=== PATIENT | female | born 1980 | race Caucasian/White ===

== ENCOUNTER 2016-09-07 13:42 | Emergency (ER) | payer OTHER ==
[2016-09-07 14:41] VITALS: BP 108/65
--- NOTE | 2016-09-07 15:08 | UC ---
Respiratory Complaint HPI - HPI Summary HPI Summary: 36 YO FEMALE WITH A ONE WEEK HX OF PROGRESSIVELY WORSENING COUGH/RUNNY NOSE/ POST NASAL DRIP/SORE THROAT AND FACIAL PRESSURE NO FEVER FATIGUE AND LOW ENERGY NO SOB HAS CP WHEN COUGHING COUGH WORSE AT NIGHT - History of Current Complaint Chief Complaint: UCRespiratory Stated Complaint: PREG/UPPER RESP COMPLAINT Time Seen by Provider: 09/07/16 14:52 Hx Obtained From: Patient Hx Last Menstrual Period: 04/26/16 Onset/Duration: Gradual Onset, Lasting Weeks - 1 Severity Initially: Mild Severity Currently: Moderate Pain Intensity: 2 Pain Scale Used: 0-10 Numeric Character: Cough: Nonproductive Aggravating Factors: Deep Breaths, Recumbent Position Alleviating Factors: Nothing Associated Signs And Symptoms: Positive: URI, Nasal Congestion, Sinus Discomfort - Allergies/Home Medications Allergies/Adverse Reactions: Allergies Allergy/AdvReac Type Severity Reaction Status Date / Time No Known Allergies Allergy Verified 10/03/14 12:32 PMH/Surg Hx/FS Hx/Imm Hx Previously Healthy: Yes Respiratory History: Asthma - EIA, Bronchitis, Pneumonia - X1 - Surgical History Surgical History: Yes Surgery Procedure, Year, and Place: APPENDECTOMY - Family History Known Family History: Positive: Hypertension - Social History Alcohol Use: None Substance Use Type: None Smoking Status (MU): Never Smoked Tobacco - Immunization History Most Recent Influenza Vaccination: received this flu season per pt Most Recent Tetanus Shot: 10/09/2013 Most Recent Pneumonia Vaccination: none Review of Systems Constitutional: Fatigue Skin: Negative Eyes: Negative ENT: Sore Throat, Ear Ache, Nasal Discharge, Sinus Congestion, Sinus Pain/ Tenderness Respiratory: Cough Cardiovascular: Negative Gastrointestinal: Negative Genitourinary: Negative Motor: Negative Neurovascular: Negative Musculoskeletal: Negative Neurological: Negative Psychological: Negative All Other Systems Reviewed And Are Negative: Yes Physical Exam Triage Information Reviewed: Yes Appearance: Well-Appearing, No Pain Distress, Well-Nourished Vital Signs: Initial Vital Signs Temp 98.7 F 09/07/16 14:37 Pulse 117 09/07/16 14:37 Resp 20 09/07/16 14:37 BP 108/65 09/07/16 14:37 Pulse Ox 100 09/07/16 14:37 Vital Signs Reviewed: Yes Eyes: Positive: Conjunctiva Clear ENT: Positive: Hearing grossly normal, Pharyngeal erythema, Nasal congestion, TM bulging, Other: - SLIGHT RIGHT MAX SINUS TENDERNESS. Negative: Nasal drainage, TMs normal, TM dull, TM red, Tonsillar swelling, Tonsillar exudate, Trismus, Muffled/hoarse voice Neck: Positive: Supple, Nontender, No Lymphadenopathy Respiratory: Positive: No respiratory distress, No accessory muscle use, Rhonchi Cardiovascular: Positive: RRR Abdominal Exam: Other - GRAVID UTERUS Musculoskeletal: Positive: ROM Intact, No Edema Neurological: Positive: Alert Psychological Exam: Normal Skin Exam: Normal UC Diagnostic Evaluation - Laboratory O2 Sat by Pulse Oximetry: 100 Respiratory Course/Dx - Differential Dx/Diagnosis Provider Diagnoses: ACUTE BRONCHITIS Discharge - Discharge Plan Condition: Stable Disposition: HOME Prescriptions: Amoxicillin (*) [Amoxicillin 875 MG (*)] 875 mg PO BID #14 tab Patient Education Materials: Acute Bronchitis (ED) Referrals: [facility] [Outside] - If Needed (CALL FOR HELP FINDING A PRIMARY CARE PROVIDER) Additional Instructions: RECHECK FOR NEW OR WORSENING SYMPTOMS RECHECK IN ABOUT 4 DAYS IF NOT IMPROVED
== END 2016-09-07 15:10 | disposition home or self-care (01) ==
LOC: UCEAST 13:42
DX: O26.899 Other specified pregnancy related conditions, unspecified trimester (principal); Z3A.00 Weeks of gestation of pregnancy not specified; J20.9 Acute bronchitis, unspecified; J45.909 Unspecified asthma, uncomplicated
CPT/HCPCS: 99211; G0463

== ENCOUNTER 2017-01-24 10:09 | Emergency (ER) | payer OTHER ==
[2017-01-24 10:27] VITALS: BP 93/55
--- NOTE | 2017-01-24 11:29 | UC ---
General HPI - HPI Summary HPI Summary: 36 y/o female 39 weeks presents to the urgent cage c/o fever, body aches, cough, PISANO, sore throat since 01/22/2017. Pt states she had a severe PISANO on and 01/24/2017 which resolved with tylenol. Pt has been stress out this past weekend celebrating Thanks giving and her daughter's birthday. She reports cough is dry but it has lingered for months. She was Tx for bronchitis 2X one in 07/2016 and the other 11/2016 Rx ABX, but cough never resolved. She also has burning and frequency on urination. She went to the OBGYN this morning. Her Dr did a UA and was +2 leuks, but her OBGYN sent it for culture and stated she didn't think it was UTI. she monitor the baby and and everything was normal. OBGYN just recommended her to come here to r/o influenza. Pt states mild sore throat, nasal congestion is clear and her PISANO now is mild 2/10 since she took tylenol this morning. Pt denies fever, SOB, chest pain, abdominal pain, pelvic pain, lower back pain, N/V/D. - History of Current Complaint Chief Complaint: UCGeneralIllness Stated Complaint: FEVER, ACHES, AND CHILLS Time Seen by Provider: 01/24/17 11:06 Hx Obtained From: Patient Hx Last Menstrual Period: 04/26/16 Pt is 39 weeks Onset/Duration: Gradual Onset, Lasting Days - 2 days, Still Present Timing: Constant Onset Severity: Mild Current Severity: Mild Pain Intensity: 4 - PISANO ans sore throat Alleviating: tylenol PO Associated Signs & Symptoms: Positive: Cough, Fever, Headache, Weakness. Negative: Back Pain, Dizziness, Diarrhea, Nausea, Palpitations, SOB, Vomiting, Wheezing - Allergy/Home Medications Allergies/Adverse Reactions: Allergies Allergy/AdvReac Type Severity Reaction Status Date / Time No Known Allergies Allergy Verified 01/24/17 10:27 Home Medications: Home Medications Acetaminophen [Acetaminophen Extra Stren] 2 tab PO TID 01/24/17 [History Confirmed 01/24/17] Docosahexaenoic Acid [ Dha] 1 tab PO DAILY 01/24/17 [History Confirmed 01/24/17] Multivitamins & [facility] [Prenate 0.6-0.4 mg] 1 tab PO DAILY 01/24/17 [ History Confirmed 01/24/17] Ranitidine HCl [Zantac] 300 mg PO DAILY 01/24/17 [History Confirmed 01/24/17] PMH/Surg Hx/FS Hx/Imm Hx Previously Healthy: Yes - Pt deneis PMHX - Surgical History Surgical History: Yes Surgery Procedure, Year, and Place: APPENDECTOMY - Family History Known Family History: Positive: Hypertension - Social History Occupation: Employed Full-time Lives: With Family Alcohol Use: None Substance Use Type: None Smoking Status (MU): Never Smoked Tobacco - Immunization History Most Recent Influenza Vaccination: 10/2016 Most Recent Tetanus Shot: 10/09/2013 Most Recent Pneumonia Vaccination: none Review of Systems Constitutional: Fever, Fatigue Skin: Negative Eyes: Negative ENT: Sore Throat, Nasal Discharge Respiratory: Cough - dry Cardiovascular: Negative Gastrointestinal: Negative Genitourinary: Frequency Motor: Negative Neurovascular: Negative Musculoskeletal: Negative Neurological: Headache Psychological: Negative Is Patient Immunocompromised?: No All Other Systems Reviewed And Are Negative: Yes Physical Exam Triage Information Reviewed: Yes Vital Signs: Initial Vital Signs Temp 98.1 F 01/24/17 10:22 Pulse 90 01/24/17 10:22 Resp 18 01/24/17 10:22 BP 93/55 01/24/17 10:22 Pulse Ox 98 01/24/17 10:22 - Additional Comments VITAL SIGNS: Reviewed. GENERAL: Patient is a well developed and nourished female who is sitting comfortable in the examining table. Patient is not in any acute respiratory distress. HEAD AND FACE: No signs of trauma. No ecchymosis, hematomas or skull depressions. No sinus tenderness. edematous erythematous nasal mucosa with clear discharge, EYES: PERRLA, EOMI x 2, No injected conjunctiva, clear watery eyes, no nystagmus. No photophobia. EARS: Hearing grossly intact. Ear canals and tympanic membranes are within normal limits. MOUTH: Positive pharynx with mild erythema, no exudates,no palatal petechiae. no B/L tonsillar enlargement Uvula in midline. NECK: Supple, trachea is midline, Positive anterior cervical lymphadenopathy, no JVD, no carotid bruit, no c-spine tenderness, neck with full ROM. No meningeal signs, no Kernig's or brudzinskis signs. CHEST: Symmetric, no tenderness at palpation LUNGS: Clear to auscultation bilaterally. No wheezing or crackles. CVS: Regular rate and rhythm, S1 and S2 present, no murmurs or gallops appreciated. ABDOMEN: Soft, non-tender. No signs of distention. No rebound no guarding, and no masses palpated. Bowel sounds are normal. EXTREMITIES: FROM in all major joints, no edema, no cyanosis or clubbing. BACK:non tender, no B/L CVA tenderness NEURO: Alert and oriented x 3. No acute neurological deficits. Speech is normal and follows commands. SKIN: Dry and warm Course/Dx - Course Course Of Treatment: 36 y/o female 39 weeks presents to the urgent cage c/o fever, body aches, cough, PISANO, sore thraot,since 01/22/2017. Pt states she had a severe PISANO on and 01/24/2017 which resolved with tylenol. Pt has been stress out this past weekend celebrating Thanks giving and her daughter's birthday. She reports cough is dry but it has linger for months. She was Tx for bronchitis 2X one in 07/2016 and the other 11/2016 Rx ABX, but cough never resolved. She also has burning and frequency on urination. She went to the OBGYN this morning. Her Dr did a UA and was +2 leuks, but her OBGYN sent it for culture and stated she didn't think it was UTI. she monitor the baby and and everything was normal. OBGYN just recommended her to come here to r /o influenza. Pt states mild sore throat, nasal congestion is clear and her PISANO now is mild 2/10 since she took tylenol this morning. Pt denies fever, SOB, chest pain, abdominal pain, pelvic pain, lower back pain, N/V/D. Hx obtained.Pt with upper respiratory infection on examination. Rapid strep ordered , result: negative. Influenza A&B: negative. Pt advised to continue taking tylenol PRN PO to alleviates symptoms of pain and swelling. Pt advised to rest, eat well and avoid strenuous exercise. F/U urine culture result with OBGYN and if symptoms do not improve or worsen in 2 days to f/u with her OBGYN or go to the ER immediately for further evaluation and treatment. Pt and understood and agreed with plan of care - Differential Dx - Multi-Symptom Differential Diagnoses: Urinary Tract Infection, Other - URI, influenza, pahryngitis, Provider Diagnoses: 1- Upper respiratory infection Discharge - Discharge Plan Condition: Stable Disposition: HOME Patient Education Materials: Upper Respiratory Infection (ED) Referrals: Devang Villaseñor MD [Primary Care Provider] - 2 Days Additional Instructions: 1-Please continue taking tylenol PO q6-8hrs prn as instructed after meals to alleviate headache, pain and swelling. Increase fluid intake, eat well, rest and avoid strenuous exercise 2-Please f/u the Urine culture result done by your OBGYN to r/o UTI 3-If symptoms do not improve or worsen please f/u with OBGYN in 2 days for further evaluation and treatment.
== END 2017-01-24 11:53 | disposition home or self-care (01) ==
LOC: UCEAST 10:09
DX: O99.513 Diseases of the respiratory system complicating pregnancy, third trimester (principal); Z3A.39 39 weeks gestation of pregnancy
CPT/HCPCS: 87502; 87651; 99211; G0463

== ENCOUNTER 2017-01-26 18:02 | Inpatient (IN) | payer OTHER ==
[2017-01-26 19:11] LABS: Hematocrit 36 % (35-47); Hemoglobin 12.4 g/dl (12.0-16.0); Mean Corpuscular HGB Conc 34 g/dl (31-36); Mean Corpuscular Hemoglobin 33 pg (27-31); Mean Corpuscular Volume 96 fL (80-97); Mean Platelet Volume 8 um3 (7.4-10.4); Red Cell Distribution Width 16 % (10.5-15); White Blood Count 8.5 10^3/ul (3.5-10.8)
[2017-01-26] MEDS ORDERED: fentaNYL* 50 MCG/ML 2 ML VIAL (100 MCG VIAL) ONE (19:28)
[2017-01-26] MEDS ORDERED: OBEPIDURAL* 250 ML ONE (19:28)
[2017-01-26] MEDS ORDERED: Famotidine TAB* 20 MG PO ONE (19:28)
[2017-01-26] MEDS ORDERED: Phenylephrine IV* 40 MCG/ML 10 ML SYRINGE IV PUSH PRN ×2 (20:14)
[2017-01-26] MEDS ORDERED: Famotidine TAB* 20 MG PO PRN (20:14)
[2017-01-26] MEDS ORDERED: Sodium Citrate/Citric Acid* 15 ML UDC PO PRN (20:14)
[2017-01-26] MEDS ORDERED: OBEPIDURAL* 250 ML EPIDURAL SCH (21:00)
[2017-01-26] MEDS ORDERED: Oxytocin in LR* 0 UNITS/0 ML BAG IVPB ONE (22:05)
[2017-01-26] MEDS ORDERED: Witch Hazel PAD* JAR TOPICAL PRN (23:09)
[2017-01-26] MEDS ORDERED: Dibucaine 1% 28.35 GM TUBE PR PRN (23:09)
[2017-01-26] MEDS ORDERED: Acetaminophen TAB* 325 MG PO PRN (23:09)
[2017-01-26] MEDS ORDERED: Ibuprofen TAB* 600 MG ONE (23:31)
[2017-01-26] MEDS: Ibuprofen TAB* 600 MG PO PRN (23:33)
[2017-01-27] MEDS ORDERED: Ammonia Inhalant* 1 EA AMP ONE (00:49)
[2017-01-27] MEDS: Docusate CAP* 100 MG PO SCH ×3 (08:12→22:03)
[2017-01-27] MEDS: Ibuprofen TAB* 600 MG PO PRN ×3 (08:12→22:03)
[2017-01-27 09:32] LABS: Hematocrit 32 % (35-47); Hemoglobin 11.3 g/dl (12.0-16.0); Mean Corpuscular HGB Conc 35 g/dl (31-36); Mean Corpuscular Hemoglobin 33 pg (27-31); Mean Corpuscular Volume 95 fL (80-97); Mean Platelet Volume 8 um3 (7.4-10.4); Red Blood Count 3.37 10^6/ul (4.0-5.4); Red Cell Distribution Width 15 % (10.5-15); White Blood Count 6.9 10^3/ul (3.5-10.8)
[2017-01-27] MEDS: Ferrous Gluconate TAB* 324 MG TAB PO SCH ×2 (11:14→21:00)
[2017-01-27] MEDS ORDERED: Famotidine TAB* 20 MG ONE (20:37)
[2017-01-27] MEDS ORDERED: Famotidine TAB* 20 MG PO SCH (21:00)
[2017-01-28] MEDS: Ibuprofen TAB* 600 MG PO PRN ×2 (04:18→11:21)
[2017-01-28 08:13] VITALS: BP 92/58
[2017-01-28] MEDS: Docusate CAP* 100 MG PO SCH (11:21)
== END 2017-01-28 11:47 | disposition home or self-care (01) | DRG 775 ==
LOC: MCHOBOUT 18:02 → MCHOB 18:11
PROVIDERS: ADMIT Midwife; ATTEND Midwife
PROC: 10E0XZZ Delivery of Products of Conception, External Approach (ICD-10-PCS; principal; 2017-01-26)
PROC: 0KQM0ZZ Repair Perineum Muscle, Open Approach (ICD-10-PCS; 2017-01-26)
PROC: 10907ZC Drainage of Amniotic Fluid, Therapeutic from Products of Conception, Via Natural or Artificial Opening (ICD-10-PCS; 2017-01-26)
PROC: 4A1HXCZ Monitoring of Products of Conception, Cardiac Rate, External Approach (ICD-10-PCS; 2017-01-26)
DX: O70.1 Second degree perineal laceration during delivery (principal); Z37.0 Single live birth; O77.0 Labor and delivery complicated by meconium in amniotic fluid; Z3A.39 39 weeks gestation of pregnancy
CPT/HCPCS: 36415; 85025; 86850; 86900; 86901; A9270-GY; J3010

== ENCOUNTER 2018-05-23 16:57 | Emergency (ER) | payer OTHER ==
[2018-05-23 17:43] VITALS: BP 114/70
--- NOTE | 2018-05-23 17:46 | UC ---
Throat Pain/Nasal Candelario HPI - HPI Summary HPI Summary: 37 yo female presents with fatigue, body aches, dry cough, sinus congestion, and post nasal drip for the last 4 days. Her toddler daughter was sick with the flu last week and pt is requesting testing today. She is going out of town in a few days to visit her elderly parents and doesn't want to get them sick. She has been taking ibuprofen for her discomfort with good relief. Denies fever, SOB , rash, abdominal pain, n/v. - History of Current Complaint Chief Complaint: UCRespiratory Stated Complaint: SINUS CONGESTION Time Seen by Provider: 05/23/18 17:46 Hx Obtained From: Patient Hx Last Menstrual Period: 05/13/18 Onset/Duration: Gradual Onset Severity: Mild Pain Intensity: 3 Pain Scale Used: 0-10 Numeric - Allergies/Home Medications Allergies/Adverse Reactions: Allergies Allergy/AdvReac Type Severity Reaction Status Date / Time No Known Allergies Allergy Verified 05/23/18 17:43 PMH/Surg Hx/FS Hx/Imm Hx - Additional Past Medical History Additional PMH: None - Surgical History Surgical History: Yes Surgery Procedure, Year, and Place: APPENDECTOMY - Family History Known Family History: Positive: Hypertension - Social History Occupation: Employed Full-time Lives: With Family Alcohol Use: None Substance Use Type: None Smoking Status (MU): Never Smoked Tobacco - Immunization History Most Recent Influenza Vaccination: 10/2016 Most Recent Tetanus Shot: 10/09/2013 Most Recent Pneumonia Vaccination: none Review of Systems All Other Systems Reviewed And Are Negative: Yes Constitutional: Positive: Fatigue, Other - Body aches Skin: Positive: Negative Eyes: Positive: Negative ENT: Positive: Sore Throat, Nasal Discharge, Sinus Congestion Respiratory: Positive: Cough Cardiovascular: Positive: Negative Gastrointestinal: Positive: Negative Musculoskeletal: Positive: Negative Psychological: Positive: Negative Physical Exam - Summary Physical Exam Summary: GENERAL: NAD. WDWN. No pain distress. SKIN: No rashes, sores, lesions, or open wounds. HEENT: Head: AT/NC Eyes: EOM intact. Conjunctiva clear without inflammation or discharge. Ears: Hearing grossly normal. TMs intact, no bulging, erythema, or edema. Nose: Nasal mucosa pink and moist. NTTP maxillary and frontal sinus. Throat: Posterior oropharynx without exudates, erythema, or tonsillar enlargement. Uvula midline. NECK: Supple. Nontender. No lymphadenopathy. CHEST: CTAB. No r/r/w. No accessory muscle use. Breathing comfortably and in no distress. CV: RRR. Without m/r/g. Pulses intact. Cap refill <2seconds NEURO: Alert. PSYCH: Age appropriate behavior. Triage Information Reviewed: Yes Vital Signs: Initial Vital Signs Temp 98.8 F 05/23/18 17:38 Pulse 101 05/23/18 17:38 Resp 18 05/23/18 17:38 BP 114/70 05/23/18 17:38 Pulse Ox 100 05/23/18 17:38 Laboratory Tests 05/23/18 18:26 Influenza A (Rapid) Positive A Vital Signs Reviewed: Yes Throat Pain/Nasal Course/Dx - Course Course Of Treatment: POC flu positive. Discussed with pt. No tamiflu at this time as symptoms are > 72 hours. Advised to continue OTC supportive care. - Differential Dx/Diagnosis Provider Diagnosis: Influenza Discharge - Sign-Out/Discharge Documenting (check all that apply): Patient Departure All imaging exams completed and their final reports reviewed: No Studies - Discharge Plan Condition: Stable Disposition: HOME Patient Education Materials: Influenza (DC) Referrals: Devang Villaseñor MD [Primary Care Provider] - Additional Instructions: If you develop a fever, shortness of breath, chest pain, new or worsening symptoms - please call your PCP or go to the ED. Continue taking your over the counter medications for your symptoms. You should start to feel better in a few days! - Billing Disposition and Condition Condition: STABLE Disposition: Home
[2018-05-23 18:31] LABS: Influenza A Molecular POSITIVE (Negative)
== END 2018-05-23 18:50 | disposition home or self-care (01) ==
LOC: UCEAST 16:57
DX: J11.1 Influenza due to unidentified influenza virus with other respiratory manifestations (principal)
CPT/HCPCS: 99211; G0463